=== PATIENT | female | born 1975 | race Hispanic/Latino ===

== ENCOUNTER → 2019-03-01 | Outpatient (CLI) | payer MEDICAID | END | disposition home or self-care (01) | LOC: SLP 20:41 | PROVIDERS: ATTEND Family Medicine | DX: G47.33 Obstructive sleep apnea (adult) (pediatric) (principal) | CPT/HCPCS: 95810 ==

== ENCOUNTER 2019-03-03 19:00 | Emergency (ER) | payer MEDICAID ==
[2019-03-03] MEDS ORDERED: ACETAMINOPHEN EXTRA STRENGTH 500 MG TABLET ONE (19:31)
[2019-03-03 19:45] LABS: BASOPHILS % (AUTO) 0.3 % (0.0-5.0); HEMATOCRIT 36.4 % (36-48); LYMPHOCYTES % (AUTO) 12.4 % (21.0-51.0); MEAN CORPUSCULAR HEMOGLOBIN 27.7 pg (27.0-33.0); MEAN CORPUSCULAR HGB CONC 33.8 g/dL (32.0-36.0); MEAN CORPUSCULAR VOLUME 81.8 fL (79-99); MONOCYTES % (AUTO) 9.8 % (3.0-13.0); NEUTROPHILS % (AUTO) 77.5 % (40.0-77.0); NUCLEATED RED BLOOD CELLS 0.1 % (0.0-0.19); PLATELET COUNT (AUTO) 319 K/uL (130-400); RED BLOOD CELL COUNT(AUTO) 4.45 MIL/uL (4.00-5.50); RED CELL DISTRIBUTION WIDTH 14.3 % (11.0-15.5); WHITE BLOOD COUNT (AUTO) 7.5 K/uL (4.8-10.8)
[2019-03-03 19:56] LABS: CARBON DIOXIDE 26 mmol/L (21-32); CHLORIDE 101 mmol/L (101-111); CREATININE 0.6 mg/dL (0.5-1.5); GLOMERULAR FILTR. RATE CALC 117 mL/min (>60); GLUCOSE,RANDOM 137 mg/dL (70-105); SODIUM SERUM 136 mmol/L (136-145); UREA NITROGEN, BLOOD 7 mg/dL (7-18)
[2019-03-03 19:58] LABS: INR 0.94 (0.85-1.15); PROTHROMBIN TIME 9.9 SEC (9.6-11.6)
[2019-03-03 20:08] LABS: ALANINE AMINOTRANSFERASE 24 U/L (12-78); ALBUMIN 3.6 g/dL (3.5-5.0); ASPARTATE AMINOTRANSFERASE 19 U/L (10-37); BILIRUBIN,TOTAL 0.2 mg/dL (0.2-1.0); CREATINE KINASE, TOTAL 46 U/L (21-232); MYOGLOBIN 18 ng/mL (10-92); TOTAL PROTEIN, SERUM 7.2 g/dL (6.0-8.3); TROPONIN I < 0.04 ng/mL (0.00-0.06)
[2019-03-03 20:20] LABS: RAPID GROUP A STREP NEGATIVE (NEGATIVE)
[2019-03-03] MEDS ORDERED: GUAIFENESIN-DM 200/20 MG 10 ML ONE (20:33)
[2019-03-03 20:38] LABS: APPEARANCE,URINE Clear (CLEAR); BILIRUBIN,URINE Negative (NEGATIVE); COLOR,URINE Yellow (YELLOW); GLUCOSE, URINE (UA) Negative (NEGATIVE); KETONES,URINE Negative (NEGATIVE); LEUKOCYTE ESTERASE ,URINE Negative (NEGATIVE); NITRATE,URINE Negative (NEGATIVE); OCCULT BLOOD,URINE Nonhemolyzed Trace (NEGATIVE); PROTEIN,URINE Negative (NEGATIVE); UROBILINOGEN,URINE 0.2 mg/dL (0.2-1.0)
[2019-03-03] MEDS ORDERED: 0.9% SODIUM CHLORIDE 1000 ML IV BAG IV ONE (20:40)
[2019-03-03 20:51] LABS: BACTERIA,URINE Rare /HPF (None Seen); MUCUS,URINE None Seen LPF (None Seen); WBC,URINE 0-1 /HPF (0-1)
[2019-03-03] MEDS ORDERED: AZITHROMYCIN 250 MG TABLET PO ONE (21:05)
[2019-03-03] MEDS ORDERED: CEFTRIAXONE SODIUM 1 GM ONE (21:08)
== END 2019-03-03 21:57 | disposition home or self-care (01) ==
LOC: EDH 19:00
DX: J18.9 Pneumonia, unspecified organism (principal); R11.10 Vomiting, unspecified; J02.9 Acute pharyngitis, unspecified; F32.9 Major depressive disorder, single episode, unspecified; F41.9 Anxiety disorder, unspecified
CPT/HCPCS: 36415; 71045; 80053; 81001; 81025; 82550; 83605; 83874; 84484; 85025; 85610; 85730; 87040 ×2; 87088; 87804 ×2; 87880; 93005; 96361; 96374; 99285; J0696; J7030

== ENCOUNTER → 2019-03-22 | Outpatient (CLI) | payer MEDICAID ==
--- NOTE | 2019-03-23 05:53 | NUR ---
AT THE END OF SLEEP STUDY CPAP TITRATION PATIENT STATED OF HAVING A BIG HEADACHE WHEN SHE WOKE UP AND STATED SOMETIMES THIS HAPPENS TO HER ALONG WITH GETTING DIZZY WHEN SHE WAKES UP. NO ISSUES OCCURRED DURING SLEEP STUDY. WHEN TRYING TO WALK OUT OF THE ROOM SHE STATED SHE SOMETIMES FALLS SO I OFFERED PATIENT A WHEEL CHAIR TO WHICH SHE AGREED TO USE, I ALSO OFFERED IF SHE WOULD LIKE GO TO ER TO GET EVALUATED BY ER PHYSICIAN WHICH SHE DID NOT AGREE TO. WHEN WE ARRIVED AT ER [facility], PATIENT WAS ASKED AGAIN IF SHE FELT BETTER AT THIS TIME AND SHE STATED SHE DID NOT, SHE ADDED SHE FELT SOME SHORTNESS OF BREATH, AND HANDS TINGLE IN ADDITION TO THE PREVIOUS SYMPTOMS. PATIENT ALSO STATED SHE HAS HISTORY OF THESE SYMPTOMS AND ALSO PASSING OUT. OFFERED PATIENT TO GET CHECKED OUT BY ER DOCTOR FOR FURTHER EVALUATION AND PATIENT AGREED. WHEELED PATIENT TO ER NURSE IN ER TRIAGE AREA, REPORTED SYMPTOMS PATIENT HAD AND NURSE BEGAN ASSESSING VITALS AND ASKING QUESTIONS TO PATIENT. Addendum: 03/23/19 at 0608 by SALAZAR SINGH Amended: Links added.
== END | disposition home or self-care (01) ==
LOC: SLP 20:34
PROVIDERS: ATTEND Family Medicine
DX: G47.33 Obstructive sleep apnea (adult) (pediatric) (principal)
CPT/HCPCS: 95811

== ENCOUNTER 2019-03-23 05:47 | Emergency (ER) | payer MEDICAID ==
[2019-03-23 06:51] LABS: BASOPHILS % (AUTO) 0.8 % (0.0-5.0); EOSINOPHILS % (AUTO) 2.9 % (0.0-8.0); HEMATOCRIT 36.7 % (36-48); LYMPHOCYTES % (AUTO) 25.2 % (21.0-51.0); MEAN CORPUSCULAR HEMOGLOBIN 26.5 pg (27.0-33.0); MEAN CORPUSCULAR HGB CONC 32.4 g/dL (32.0-36.0); MEAN CORPUSCULAR VOLUME 81.9 fL (79-99); MONOCYTES % (AUTO) 8.2 % (3.0-13.0); NEUTROPHILS % (AUTO) 62.9 % (40.0-77.0); PLATELET COUNT (AUTO) 333 K/uL (130-400); RED BLOOD CELL COUNT(AUTO) 4.48 MIL/uL (4.00-5.50); RED CELL DISTRIBUTION WIDTH 14.5 % (11.0-15.5); WHITE BLOOD COUNT (AUTO) 5.8 K/uL (4.8-10.8)
[2019-03-23 06:53] LABS: APPEARANCE,URINE Clear (CLEAR); BILIRUBIN,URINE Negative (NEGATIVE); COLOR,URINE Yellow (YELLOW); GLUCOSE, URINE (UA) Negative (NEGATIVE); KETONES,URINE Negative (NEGATIVE); LEUKOCYTE ESTERASE ,URINE Negative (NEGATIVE); NITRATE,URINE Negative (NEGATIVE); OCCULT BLOOD,URINE Negative (NEGATIVE); PROTEIN,URINE Negative (NEGATIVE); UROBILINOGEN,URINE 0.2 mg/dL (0.2-1.0)
[2019-03-23 06:55] LABS: AMPHET/METH SCREEN,URINE NEGATIVE (NEGATIVE); BARBITURATE SCREEN, URINE NEGATIVE (NEGATIVE); BENZODIAZEPINES SCREEN,URINE NEGATIVE (NEGATIVE); CANNABINOID SCREEN,URINE NEGATIVE (NEGATIVE); COCAINE SCREEN,URINE NEGATIVE (NEGATIVE); OPIATE SCREEN,URINE NEGATIVE (NEGATIVE); PHENCYCLIDINE SCREEN,URINE NEGATIVE (NEGATIVE)
[2019-03-23 06:56] LABS: CREATININE 0.6 mg/dL (0.5-1.5)
[2019-03-23 07:01] LABS: ALBUMIN 3.3 g/dL (3.5-5.0); BILIRUBIN,TOTAL 0.4 mg/dL (0.2-1.0); TOTAL PROTEIN, SERUM 7.1 g/dL (6.0-8.3)
[2019-03-23] MEDS ORDERED: KETOROLAC TROMETHAMINE 30MG/ML ONE (07:21)
[2019-03-23] MEDS ORDERED: DEXAMETHASONE SOD PHOSPHATE 10MG/ML 1ML VIAL ONE (07:21)
== END 2019-03-23 08:18 | disposition home or self-care (01) ==
LOC: EDH 05:47
DX: R51 Headache (principal); F41.9 Anxiety disorder, unspecified; F32.9 Major depressive disorder, single episode, unspecified; Z90.10 Acquired absence of unspecified breast and nipple
CPT/HCPCS: 36415; 80053; 80305; 81003; 83690; 84484; 85025; 93005; 96374; 96375; 99285; J1100; J1885